=== PATIENT | male | born 1960 | race Caucasian/White ===

== ENCOUNTER 2020-03-31 20:04 | Emergency (ER) | payer MEDICAID ==
[~2020-03-31] VITALS: Ht 190.5 cm; Wt 168.2 kg
[2020-03-31 20:11] VITALS: Ht 190.5 cm; Wt 168.2 kg
[2020-03-31] MEDS ORDERED: BAYER CHEWABLE81 MG PO (20:16)
[2020-03-31] MEDS ORDERED: LISINOPRIL20 MG PO (20:17)
[2020-03-31] MEDS ORDERED: COREG12.5 MG PO (20:17)
[2020-03-31] MEDS ORDERED: PLAVIX75 MG PO (20:17)
[2020-03-31] MEDS ORDERED: GLUCOPHAGE1000 MG PO (20:17)
[2020-03-31] MEDS ORDERED: HYDROCODON-ACE1 EA10 PO (20:18)
[2020-03-31 20:31] LABS: BASOPHILS 0.3 % (0-2); HEMOGLOBIN 12.8 g/dL (13.5-17.5); IMMATURE GRANULOCYTES 0.3 % (0-5); LYMPHOCYTES 17.1 % (15-50); MCHC 32.8 g/dL (31.0-37.0); MCV 88.2 fL (80.0-100.0); MEAN PLATELET VOLUME 9.8 fL (7.4-10.4); MONOCYTES 5.9 % (2-11); NEUTROPHILS 75.4 % (40-80); PLATELET COUNT 347 10x3/uL (130-400); RBC 4.42 10x6/uL (4.20-6.10); RDW 13.3 % (11.5-14.5); WBC 14.5 10x3/uL (4.8-10.8)
[2020-03-31 20:43] LABS: CALC OSMOLALITY 276 mosm/kg (275-300); CALCIUM 8.9 mg/dL (8.5-10.1); CARBON DIOXIDE 28.4 mmol/L (21.0-32.0); CHLORIDE - SERUM 99 mmol/L (98-107); CREATININE - SERUM 0.9 mg/dL (0.6-1.3); GLUCOSE 115 mg/dL (74-106); POTASSIUM - SERUM 4.6 mmol/L (3.5-5.1); SODIUM 138 mmol/L (136-145); UREA NITROGEN 13 mg/dL (7-18); eGFR NON AFRICAN AMERICAN > 90 mL/min (90-120)
[2020-03-31 20:49] LABS: ALBUMIN 3.8 g/dL (3.4-5.0); ALKALINE PHOSPHATASE 90 U/L (30-120); ALT (SGPT) 38 U/L (10-68); BILIRUBIN - TOTAL 0.33 mg/dL (0.2-1.3)
[2020-03-31 20:50] LABS: APTT 24.5 SECONDS (22.8-39.4); INR 0.94 (0.85-1.17); PROTIME 12.6 SECONDS (11.6-15.0)
[2020-03-31 21:15] LABS: CKMB 1.4 U/L (0.0-3.6); CREATINE KINASE 170 UL (21-232); MAGNESIUM - SERUM 1.7 mg/dL (1.8-2.4)
[2020-03-31 21:24] LABS: TROPONIN-I < 0.017 ng/mL (0.000-0.060)
[2020-03-31 23:41] VITALS: BP 155/90
== END 2020-03-31 23:42 | disposition other institution (70) ==
LOC: D.ER 20:04
PROVIDERS: Family Medicine
DX: K92.2 Gastrointestinal hemorrhage, unspecified (principal); I25.10 Atherosclerotic heart disease of native coronary artery without angina pectoris; E11.9 Type 2 diabetes mellitus without complications; I10 Essential (primary) hypertension; I25.2 Old myocardial infarction; Z79.84 Long term (current) use of oral hypoglycemic drugs